=== PATIENT | female | born 1985 | race Caucasian/White ===

== ENCOUNTER 2020-06-13 16:25 | Emergency (ER) | payer BC ==
[~2020-06-13] VITALS: Ht 167.6 cm; Wt 73.0 kg
[2020-06-13 16:35] VITALS: BP 113/82; Ht 167.6 cm; Wt 73.0 kg
[2020-06-13 17:47] LABS: UA SPECIFIC GRAVITY >=1.030 (1.005-1.035); microscopic required? YES; urine erythrocyte 3+ (NEGATIVE)
[2020-06-13] MEDS ORDERED: MACROBID100 MG PO (18:07)
[2020-06-13] MEDS ORDERED: PYRIDIUM200 M1 PO (18:07)
== END 2020-06-13 18:28 | disposition home or self-care (01) ==
LOC: ED 16:25
PROVIDERS: Emergency Medicine
DX: N30.01 Acute cystitis with hematuria (principal)
CPT/HCPCS: J1885